=== PATIENT | male | born 2000 | race Caucasian/White ===

== ENCOUNTER 2023-12-14 06:06 | Day surgery (SDC) | payer OTHER ==
[~2023-12-14] VITALS: Ht 180.3 cm; Wt 83.9 kg
[2023-12-14] MEDS ORDERED: MIDAZOLAM HCL 5 MG/5 ML VIAL ONE ×2 (06:40→08:27)
[2023-12-14] MEDS ORDERED: MEPERIDINE 100 MG INJ. 100 MG/ML VIAL ONE (06:40)
[2023-12-14] MEDS ORDERED: SIMETHICONE 40 MG/0.6 ML ML ONE (06:40)
[2023-12-14 07:03] VITALS: O2SAT 99
[2023-12-14] MEDS ORDERED: DIPHENHYDRAMINE INJ 50 MG/ML VIAL ONE (08:27)
[2023-12-14 13:32] VITALS: BP_SYST 126; PULSE 65; RESP 16
== END 2023-12-14 09:37 | disposition home or self-care (01) ==
LOC: SDS 06:06 → SMU 06:08 → SDS 09:37
PROVIDERS: ATTEND Internal Medicine Gastroenterology
DX: R10.10 Upper abdominal pain, unspecified (principal); K29.50 Unspecified chronic gastritis without bleeding; K21.9 Gastro-esophageal reflux disease without esophagitis; Z79.899 Other long term (current) drug therapy
CPT/HCPCS: 99152; 87081; 36415; 43239; 88305; 88312; 88313; G0378; J1200; J2250; J2175